=== PATIENT | female | born 1960 | race Caucasian/White ===

== ENCOUNTER 2018-10-18 05:31 | Inpatient (IN) | payer MEDICARE, BC ==
[2018-10-13 11:38] LABS: BASOPHILS % (AUTO) 0.2 % (0-1); EOSINOPHILS # (AUTO) 0.2 X10'3 (0-0.9); EOSINOPHILS % (AUTO) 2.1 % (0-6); LYMPHOCYTES # (AUTO) 2.1 X10'3 (1.1-4.8); LYMPHOCYTES % (AUTO) 25.4 % (21-51); MEAN CORPUSCULAR HGB CONC 33.2 % (33.0-36.5); MEAN CORPUSCULAR VOLUME 87.3 FL (78-98); MEAN PLATELET VOLUME 10.2 FL (7.4-10.4); MONOCYTES # (AUTO) 0.5 X10'3 (0-0.9); MONOCYTES % (AUTO) 6.4 % (2-12); NEUTROPHILS # (AUTO) 5.4 X10'3 (1.8-7.7); NEUTROPHILS % (AUTO) 65.9 % (42-75); PRE OP HEMATOCRIT 41.4 % (35.0-45.0); PRE OP HEMOGLOBIN 13.7 g/dL (12.0-16.0); PRE OP PLATELET COUNT 202 X10'3 (140-440); RED BLOOD COUNT 4.74 X10'6 (4.20-5.60); RED CELL DISTRIBUTION WIDTH 13.4 % (11.5-14.5)
[2018-10-13 11:45] LABS: CLARITY,URINE SLIGHTLY CLOUDY (Clear); COLOR,URINE YELLOW (Yellow); GLUCOSE, URINE NEGATIVE (Neg); KETONES,URINE NEGATIVE (Neg); LEUKOCYTE ESTERASE ,URINE NEGATIVE (Neg); NITRITES, URINE NEGATIVE (Neg); OCCULT BLOOD,URINE NEGATIVE (Neg); PH,URINE 5.5 (4.8-8.0); PROTEIN,URINE 30 mg/dl (Neg); UROBILINOGEN,URINE 0.2 E.U/dL (0.2-1.0)
[2018-10-13 11:46] LABS: UA COLLECTION TYPE CLN CATCH MIDSTREAM
[2018-10-13 12:06] LABS: ALBUMIN 3.7 G/DL (3.4-5.0); ALBUMIN/GLOBULIN RATIO 0.9 (1.1-1.5); ALKALINE PHOSPHATASE 80 IU/L (46-116); BLOOD UREA NITROGEN 27 MG/DL (7-18); CALCIUM 9.5 MG/DL (8.5-10.1); CHLORIDE 102 MMOL/L (99-107); CREATININE 0.75 MG/DL (0.40-0.90); PRE OP ALT 20 U/L (30-65); PRE OP ANION GAP 9 (8-16); PRE OP AST 20 U/L (10-37); PRE OP BILIRUB, TOTAL 0.4 MG/DL (0.0-1.0); PRE OP GLUCOSE 132 MG/DL (70-104); PRE OP POTASSIUM 4.2 MMOL/L (3.4-5.1); PRE OP SODIUM 139 MMOL/L (135-145); TOTAL CARBON DIOXIDE 27.9 MMOL/L (24-32); TOTAL PROTEIN 7.9 G/DL (6.4-8.2); eGFR 79 ML/MIN
[2018-10-13 12:10] LABS: MUCUS STRANDS FEW /LPF (Neg); SQUAMOUS EPITHELIAL CELL,UR MANY /LPF (FEW)
[2018-10-13 12:11] LABS: BACTERIA,URINE 2+ /HPF (Neg); HYALINE CASTS 0-3 /LPF (NEGATIVE)
[2018-10-13 12:12] LABS: RBC,URINE NONE SEEN /HPF (0-2); WBC,URINE NONE SEEN /HPF (0-4)
[2018-10-13 12:50] LABS: HEMOGLOBIN A1C 7.1 % (4.5-6.2)
[~2018-10-18] VITALS: Ht 162.6 cm; Wt 86.0 kg
[2018-10-18] VITALS (17 sets, daily range): BP systolic 88–156; BP diastolic 47–89
[~2018-10-18 05:31] MED LIST: BUPR1PAT3 TOP; DILT30TA4 PO; INSU200I4 SQ; NOVLG SQ; PROG200C7 PO; THYR90TA PO; VALS80TA32 PO; acetaminophen 325mg tablet PO ONE; cefazolin/dext.iso 2gm/50ml 50 ML IV ONE; celeCOXIB 100mg capsule PO ONE; famotidine 20mg tablet PO ONE; gabapentin 300mg capsule PO ONE; oxyCODONE SR 10mg (sust. release) tab -2 tabs (20mg) PO ONE; ringers solution, lacted 1,000 ML IV SCH; tranexamic acid inj. 1,500 MG in normal saline 100ml IV soln 85 ML IV ONE; vancomycin inj 1,500 MG in normal saline 300ml IV soln IV ONE
[2018-10-18] MEDS ORDERED: LIDOcaine 1% (10mg/ml) 2ml vial ONE (06:07)
[2018-10-18] MEDS ORDERED: bacitracin inj 150,000 UNIT in sodium chloride irrig. sol 3,000 ML IR ONE (07:00)
[2018-10-18] MEDS ORDERED: tetracaine 1% (10mg/ml) pres. free inj. ONE (07:07)
[2018-10-18] MEDS ORDERED: MIDAZolam 1mg/ml 10ml vial ONE (07:09)
[2018-10-18] MEDS ORDERED: morphine /PF 1mg/ml 10ml inj. ONE (07:10)
[2018-10-18] MEDS ORDERED: fentaNYL/PF 50MCG/1 ML 2ML syringe ONE (07:10)
[2018-10-18] MEDS ORDERED: BUPIVAcaine/dex-water/PF 7.5 mg/ml 2ml ampul ONE (07:11)
[2018-10-18] MEDS ORDERED: LIDOcaine 2% (20mg/ml) 5ml vial ONE (07:24)
[2018-10-18] MEDS ORDERED: propofol inj 20 ML IV ONE ×2 (07:24)
[2018-10-18] MEDS ORDERED: ROPIVAcaine 0.5% (5mg/ml) 30ml vial ONE (07:53)
[2018-10-18] MEDS ORDERED: ringers solution, lacted 1,000 ML IV SCH (07:59)
[2018-10-18] MEDS ORDERED: fentaNYL/PF 50MCG/1 ML 2ML syringe IV PRN ×2 (08:00)
[2018-10-18] MEDS ORDERED: ondansetron/PF 4mg/2ml inj IV PRN ×3 (08:00→09:20)
[2018-10-18] MEDS ORDERED: hydrALAZINE 20mg/ml inj. IV PRN (08:00)
[2018-10-18] MEDS ORDERED: morphine 4 MG/ML inj SYRINge IV PRN ×2 (08:00)
[2018-10-18] MEDS ORDERED: enalaprilat dihydrate 2.5mg/2ml vial IV PRN (08:00)
[2018-10-18] MEDS ORDERED: diphenhydrAMINE 50 mg/ml inj IV PRN (08:05)
[2018-10-18] MEDS ORDERED: ePHEDrine 50MG/ML INJ. ONE (09:09)
[2018-10-18] MEDS ORDERED: dextrose ORAL solution 15 GM/59 ML bottle PO PRN ×2 (09:20)
[2018-10-18] MEDS ORDERED: magnesium hydroxide 30ml (MOM) UD suspension PO PRN (09:20)
[2018-10-18] MEDS ORDERED: diphenhydrAMINE 25mg capsule PO PRN ×2 (09:20)
[2018-10-18] MEDS ORDERED: acetaminophen 325mg tablet PO PRN (09:20)
[2018-10-18] MEDS ORDERED: bisacodyl 10mg suppository rectal RC PRN (09:20)
[2018-10-18] MEDS ORDERED: MESSAGE TO PHARMACY PO ONE (09:20)
[2018-10-18] MEDS ORDERED: dextrose 50%-water 50ml dispensing syringe IV PRN ×2 (09:20)
[2018-10-18] MEDS ORDERED: glucagon, human recombinant 1mg kit SUBCUT PRN (09:20)
[2018-10-18] MEDS: oxyCODONE/APAP 10/325mg tablet PO PRN ×3 (09:59→20:09)
[2018-10-18] MEDS ORDERED: DILT30TA12 PO (11:47)
[2018-10-18] MEDS: gabapentin 300mg capsule PO SCH ×2 (13:13→20:07)
[2018-10-18] MEDS: potassium cl 20mEq in 1/2 NS 1,000 ML IV SCH ×2 (15:51→19:19)
[2018-10-18] MEDS: ceFAZolin 1GM/D5W- ADD-VANTAGE 50 ML IV SCH (16:00)
[2018-10-18] MEDS ORDERED: vancomycin/NS 1 GM ADD-VANTAGE 250 ML IV SCH (20:00)
[2018-10-18] MEDS: sennosides 8.6mg tablet PO SCH (20:07)
[2018-10-18] MEDS: celeCOXIB 100mg capsule PO SCH (20:07)
[2018-10-18] MEDS: ascorbic acid 500mg tablet PO SCH (20:07)
[2018-10-18] MEDS: insulin glargine (Lantus) pen - multi-dose SQ SCH (20:10)
[2018-10-19] MEDS: ceFAZolin 1GM/D5W- ADD-VANTAGE 50 ML IV SCH (00:10)
[2018-10-19] MEDS: oxyCODONE/APAP 10/325mg tablet PO PRN ×5 (00:14→19:10)
[2018-10-19 02:00] VITALS: BP 131/58
[2018-10-19] MEDS: potassium cl 20mEq in 1/2 NS 1,000 ML IV SCH ×3 (04:17→23:04)
[2018-10-19 05:00] VITALS: BP 118/54
[2018-10-19] MEDS: thyroid, pork 30mg tablet PO SCH (07:12)
[2018-10-19 07:16] LABS: BASOPHILS % (AUTO) 0.3 % (0-1); EOSINOPHILS # (AUTO) 0.1 X10'3 (0-0.9); EOSINOPHILS % (AUTO) 1.6 % (0-6); HEMATOCRIT 33.1 % (35.0-45.0); LYMPHOCYTES # (AUTO) 2.2 X10'3 (1.1-4.8); LYMPHOCYTES % (AUTO) 30.4 % (21-51); MEAN CORPUSCULAR HGB CONC 33.2 % (33.0-36.5); MEAN CORPUSCULAR VOLUME 87.4 FL (78-98); MEAN PLATELET VOLUME 10.1 FL (7.4-10.4); MONOCYTES # (AUTO) 0.6 X10'3 (0-0.9); MONOCYTES % (AUTO) 8.1 % (2-12); NEUTROPHILS # (AUTO) 4.3 X10'3 (1.8-7.7); NEUTROPHILS % (AUTO) 59.6 % (42-75); PLATELET COUNT 150 X10'3 (140-440); RED BLOOD COUNT 3.78 X10'6 (4.20-5.60); RED CELL DISTRIBUTION WIDTH 13.5 % (11.5-14.5); WHITE BLOOD COUNT 7.2 X10'3 (4.5-11.0)
[2018-10-19 07:28] LABS: INR 1.3 INR; PROTHROMBIN TIME 12.7 SECONDS (9.0-12.0)
[2018-10-19 07:41] LABS: ALANINE AMINOTRANSFERASE 17 U/L (12-78); ALBUMIN 2.7 G/DL (3.4-5.0); ALBUMIN/GLOBULIN RATIO 0.9 (1.1-1.5); ALKALINE PHOSPHATASE 56 IU/L (46-116); ANION GAP 7 (8-16); ASPARTATE AMINO TRANSFERASE 23 U/L (10-37); BILIRUBIN,TOTAL 0.4 MG/DL (0.1-1.0); BLOOD UREA NITROGEN 9 MG/DL (7-18); BUN/CREATININE RATIO 11.7 (6.6-38.0); CALCIUM 7.4 MG/DL (8.5-10.1); CHLORIDE 103 MMOL/L (99-107); CREATININE 0.77 MG/DL (0.40-0.90); GLUCOSE 99 MG/DL (70-104); POTASSIUM 4.1 MMOL/L (3.5-5.1); SODIUM 138 MMOL/L (135-145); TOTAL CARBON DIOXIDE 28.4 MMOL/L (24-32); TOTAL PROTEIN 5.8 G/DL (6.4-8.2); eGFR 77 ML/MIN
[2018-10-19] MEDS ORDERED: INSULIN DEGLUDEC 38 UNIT SQ SCH (08:00)
[2018-10-19] MEDS ORDERED: diltiazem 30mg tablet PO SCH ×2 (08:00)
[2018-10-19] MEDS: ascorbic acid 500mg tablet PO SCH ×2 (08:57→21:00)
[2018-10-19] MEDS: losartan 50mg tablet PO SCH (08:57)
[2018-10-19] MEDS: multivitamins, therapeutics tablet PO SCH (08:58)
[2018-10-19] MEDS: gabapentin 300mg capsule PO SCH ×3 (08:58→21:00)
[2018-10-19] MEDS: progesterone, micronized 100mg capsule PO SCH (08:59)
[2018-10-19] MEDS: celeCOXIB 100mg capsule PO SCH ×2 (09:08→21:00)
[2018-10-19] MEDS: diltiazem 30mg tablet PO SCH (09:09)
[2018-10-19 10:00] VITALS: BP_SYST 132; BP_SYST 142; BP_DIAS 53; BP_DIAS 65
[2018-10-19] MEDS ORDERED: warfarin 5mg tablet PO ONE (10:00)
[2018-10-19 15:00] VITALS: BP 136/53
[2018-10-19 18:00] VITALS: BP 146/55
[2018-10-19] MEDS: insulin Lispro (HumaLOG) vial - multi-dose SQ SCH (18:50)
[2018-10-19] MEDS ORDERED: celeCOXIB 100mg capsule PO SCH (20:00)
[2018-10-19] MEDS: sennosides 8.6mg tablet PO SCH (21:00)
[2018-10-19] MEDS: insulin glargine (Lantus) pen - multi-dose SQ SCH (21:03)
[2018-10-19 22:00] VITALS: BP 134/55
[2018-10-20] MEDS: potassium cl 20mEq in 1/2 NS 1,000 ML IV SCH (01:20)
[2018-10-20] MEDS: oxyCODONE/APAP 10/325mg tablet PO PRN ×4 (05:28→19:28)
[2018-10-20 06:05] LABS: BASOPHILS % (AUTO) 0.2 % (0-1); EOSINOPHILS # (AUTO) 0.2 X10'3 (0-0.9); EOSINOPHILS % (AUTO) 3.3 % (0-6); HEMATOCRIT 33.3 % (35.0-45.0); HEMOGLOBIN 11.2 g/dl (12.0-16.0); LYMPHOCYTES % (AUTO) 29.2 % (21-51); MEAN CORPUSCULAR HEMOGLOBIN 29.2 PG (27.0-31.0); MEAN CORPUSCULAR HGB CONC 33.7 % (33.0-36.5); MEAN CORPUSCULAR VOLUME 86.7 FL (78-98); MEAN PLATELET VOLUME 10.5 FL (7.4-10.4); MONOCYTES # (AUTO) 0.6 X10'3 (0-0.9); MONOCYTES % (AUTO) 9.1 % (2-12); NEUTROPHILS # (AUTO) 4.1 X10'3 (1.8-7.7); NEUTROPHILS % (AUTO) 58.2 % (42-75); PLATELET COUNT 144 X10'3 (140-440); RED BLOOD COUNT 3.84 X10'6 (4.20-5.60); RED CELL DISTRIBUTION WIDTH 13.6 % (11.5-14.5)
[2018-10-20 06:15] LABS: INR 1.4 INR
[2018-10-20 06:23] LABS: ALANINE AMINOTRANSFERASE 15 U/L (12-78); ALBUMIN 2.7 G/DL (3.4-5.0); ALBUMIN/GLOBULIN RATIO 0.8 (1.1-1.5); ALKALINE PHOSPHATASE 53 IU/L (46-116); ANION GAP 7 (8-16); ASPARTATE AMINO TRANSFERASE 22 U/L (10-37); BILIRUBIN,TOTAL 0.3 MG/DL (0.1-1.0); BLOOD UREA NITROGEN 11 MG/DL (7-18); BUN/CREATININE RATIO 15.9 (6.6-38.0); CALCIUM 7.9 MG/DL (8.5-10.1); CHLORIDE 106 MMOL/L (99-107); CREATININE 0.69 MG/DL (0.40-0.90); GLUCOSE 124 MG/DL (70-104); SODIUM 141 MMOL/L (135-145); TOTAL CARBON DIOXIDE 28.4 MMOL/L (24-32); eGFR 87 ML/MIN
[2018-10-20 07:01] VITALS: BP 138/60
[2018-10-20] MEDS: thyroid, pork 30mg tablet PO SCH (08:08)
[2018-10-20] MEDS: progesterone, micronized 100mg capsule PO SCH (08:09)
[2018-10-20] MEDS: celeCOXIB 100mg capsule PO SCH ×2 (08:09→19:27)
[2018-10-20] MEDS: losartan 50mg tablet PO SCH (08:09)
[2018-10-20] MEDS: multivitamins, therapeutics tablet PO SCH (08:09)
[2018-10-20] MEDS: gabapentin 300mg capsule PO SCH ×3 (08:09→19:28)
[2018-10-20] MEDS: diltiazem 30mg tablet PO SCH (08:09)
[2018-10-20] MEDS: ascorbic acid 500mg tablet PO SCH ×2 (08:10→19:28)
[2018-10-20] MEDS: insulin Lispro (HumaLOG) vial - multi-dose SQ SCH ×3 (09:11→18:41)
[2018-10-20] MEDS ORDERED: acetaminophen 325mg tablet PO PRN (09:20)
[2018-10-20] MEDS ORDERED: warfarin 5mg tablet PO ONE (10:00)
[2018-10-20 10:48] VITALS: BP 124/63
[2018-10-20 18:00] VITALS: BP 153/67
[2018-10-20] MEDS: sennosides 8.6mg tablet PO SCH (19:27)
[2018-10-20] MEDS: insulin glargine (Lantus) pen - multi-dose SQ SCH (21:30)
[2018-10-20 22:07] VITALS: BP 174/72
[2018-10-21] MEDS: oxyCODONE/APAP 10/325mg tablet PO PRN ×4 (02:28→12:21)
[2018-10-21 06:00] VITALS: BP 146/59
[2018-10-21 06:03] LABS: BASOPHILS % (AUTO) 0.4 % (0-1); EOSINOPHILS # (AUTO) 0.2 X10'3 (0-0.9); EOSINOPHILS % (AUTO) 3.4 % (0-6); HEMATOCRIT 33.5 % (35.0-45.0); HEMOGLOBIN 11.2 g/dl (12.0-16.0); LYMPHOCYTES # (AUTO) 2.6 X10'3 (1.1-4.8); LYMPHOCYTES % (AUTO) 36.1 % (21-51); MEAN CORPUSCULAR HEMOGLOBIN 28.8 PG (27.0-31.0); MEAN CORPUSCULAR HGB CONC 33.3 % (33.0-36.5); MEAN CORPUSCULAR VOLUME 86.3 FL (78-98); MEAN PLATELET VOLUME 9.8 FL (7.4-10.4); MONOCYTES # (AUTO) 0.6 X10'3 (0-0.9); MONOCYTES % (AUTO) 7.8 % (2-12); NEUTROPHILS # (AUTO) 3.7 X10'3 (1.8-7.7); NEUTROPHILS % (AUTO) 52.3 % (42-75); PLATELET COUNT 162 X10'3 (140-440); RED BLOOD COUNT 3.88 X10'6 (4.20-5.60); WHITE BLOOD COUNT 7.1 X10'3 (4.5-11.0)
[2018-10-21 06:15] LABS: INR 1.5 INR; PROTHROMBIN TIME 15.2 SECONDS (9.0-12.0)
[2018-10-21 06:26] LABS: ALANINE AMINOTRANSFERASE 16 U/L (12-78); ALBUMIN 2.6 G/DL (3.4-5.0); ALBUMIN/GLOBULIN RATIO 0.7 (1.1-1.5); ALKALINE PHOSPHATASE 52 IU/L (46-116); ANION GAP 7 (8-16); ASPARTATE AMINO TRANSFERASE 20 U/L (10-37); BILIRUBIN,TOTAL 0.3 MG/DL (0.1-1.0); BLOOD UREA NITROGEN 15 MG/DL (7-18); BUN/CREATININE RATIO 17.9 (6.6-38.0); CHLORIDE 103 MMOL/L (99-107); CREATININE 0.84 MG/DL (0.40-0.90); GLUCOSE 125 MG/DL (70-104); POTASSIUM 3.9 MMOL/L (3.5-5.1); SODIUM 138 MMOL/L (135-145); TOTAL CARBON DIOXIDE 28.1 MMOL/L (24-32); TOTAL PROTEIN 6.3 G/DL (6.4-8.2); eGFR 70 ML/MIN
[2018-10-21] MEDS ORDERED: ASPI-1264 PO (07:06)
[2018-10-21] MEDS: insulin Lispro (HumaLOG) vial - multi-dose SQ SCH (08:37)
[2018-10-21] MEDS: diltiazem 30mg tablet PO SCH (08:39)
[2018-10-21] MEDS: losartan 50mg tablet PO SCH (08:40)
[2018-10-21] MEDS: gabapentin 300mg capsule PO SCH ×2 (08:40→13:10)
[2018-10-21] MEDS: thyroid, pork 30mg tablet PO SCH (08:40)
[2018-10-21] MEDS: ascorbic acid 500mg tablet PO SCH (08:40)
[2018-10-21] MEDS: multivitamins, therapeutics tablet PO SCH (08:40)
[2018-10-21] MEDS: celeCOXIB 100mg capsule PO SCH (08:40)
[2018-10-21] MEDS: progesterone, micronized 100mg capsule PO SCH (08:40)
[2018-10-21] MEDS ORDERED: warfarin 3mg tablet PO ONE (10:00)
[2018-10-21 10:04] VITALS: BP 122/46
== END 2018-10-21 13:23 | disposition home or self-care (01) | DRG 470 ==
LOC: PAS IN 05:31 → EDSTATUS 07:30 → ORTHO 4S 10:25 → EDSTATUS 10-25 14:00
PROVIDERS: ADMIT Specialist; ATTEND Specialist
PROC: 0SRB04Z Replacement of Left Hip Joint with Ceramic on Polyethylene Synthetic Substitute, Open Approach (ICD-10-PCS; principal; 2018-10-18 07:08)
DX: M16.12 Unilateral primary osteoarthritis, left hip (principal); D62 Acute posthemorrhagic anemia; Z96.651 Presence of right artificial knee joint; I12.9 Hypertensive chronic kidney disease with stage 1 through stage 4 chronic kidney disease, or unspecified chronic kidney disease; E11.22 Type 2 diabetes mellitus with diabetic chronic kidney disease; N18.9 Chronic kidney disease, unspecified; E03.9 Hypothyroidism, unspecified; I25.10 Atherosclerotic heart disease of native coronary artery without angina pectoris; Z98.1 Arthrodesis status; Z79.899 Other long term (current) drug therapy; Z79.4 Long term (current) use of insulin; Z88.0 Allergy status to penicillin; Z88.8 Allergy status to other drugs, medicaments and biological substances
CPT/HCPCS: 36415; 73502; 80053; 81001; 82948; 83036; 84443; 85025; 85610; 85730; 86885; 86900; 86901; 87070; 93005; 97110; 97116; 97162; 97530; A6253; A6449; A6455; A7000; C1758; C1776; G0378; J0690; J1815; J2001; J2250; J2274; J2405; J2704; J2795; J3010; J3370; J3490; J7030; J7120; Q0163

== ENCOUNTER 2019-02-04 07:42 | Emergency (ER) | payer MEDICARE, BC ==
[~2019-02-04] VITALS: Ht 162.6 cm; Wt 86.0 kg
[~2019-02-04 07:42] MED LIST changes: +DILT30TA12 PO; -DILT30TA4 PO; -acetaminophen 325mg tablet PO ONE; -cefazolin/dext.iso 2gm/50ml 50 ML IV ONE; -celeCOXIB 100mg capsule PO ONE; -famotidine 20mg tablet PO ONE; -gabapentin 300mg capsule PO ONE; -oxyCODONE SR 10mg (sust. release) tab -2 tabs (20mg) PO ONE; -ringers solution, lacted 1,000 ML IV SCH; -tranexamic acid inj. 1,500 MG in normal saline 100ml IV soln 85 ML IV ONE; -vancomycin inj 1,500 MG in normal saline 300ml IV soln IV ONE
--- NOTE | 2019-02-04 07:57 | NUR ---
dr. [email or web address] at bedside.
[2019-02-04] MEDS ORDERED: ketorolac trometh inj. 60 MG/2 ML VIAL IM ONE (08:00)
[2019-02-04 09:16] VITALS: BP 148/76
== END 2019-02-04 09:18 | disposition home or self-care (01) ==
LOC: ER 07:42
DX: M25.552 Pain in left hip (principal); M19.90 Unspecified osteoarthritis, unspecified site; G89.29 Other chronic pain; Z88.0 Allergy status to penicillin; Z96.642 Presence of left artificial hip joint
CPT/HCPCS: 73502; 96372; 99283; J1885